=== PATIENT | male | born 1945 | race Caucasian/White ===

== ENCOUNTER 2017-03-18 08:31 | Inpatient (IN) | payer OTHER ==
[~2017-03-18] VITALS: Ht 175.2 cm; Wt 165.6 kg
--- NOTE | ~2017-03-18 | PR ---
[place], [place] PROGRESS NOTE [id number] UN[facility] #: [id number] ROOM: 312 DOCTOR: Shaggy GUILLEN,DONNELL BIRTHDATE: [birth year] DOS: 03/23/2017 PSYCHIATRIC PROGRESS NOTE SUBJECTIVE: The patient seen and spoke with the staff. Per staff, the patient stays in his room most of the time, does not want to come out because he has difficulty getting up. He was angry last night, but he was easily redirectable. He slept well. Medication compliant. No behavioral problems or issues. The patient was in his room. He was on his bed. He was actually sleeping. I woke him up. He reports doing good. Denied any problems with medication. Denied depressed mood or hopelessness. Denied any psychotic or manic symptoms. He was not in any distress. He says that he would like to go home soon. MENTAL STATUS EXAMINATION: The patient was pleasant, cooperative. described his mood as "okay and good." Affect, mood congruent. Thought process goal directed. No flight of ideas or loosening of association. He denied auditory or visual hallucination. No delusion or paranoia noted. He denied suicidal ideation, intent or plan. He also denied homicidal ideation, intent or plan. ASSESSMENT: Major depressive disorder, recurrent without psychotic feature. PLAN: 1. Continue current medications. 2. Continue redirection. 3. Fernando milieu. 4. Final medication management, discharge plan by the regular team. DONNELL GUILLEN MD CM:ORION [id number] Shaggy GUILLEN 03/23/17 1205 interface
--- NOTE | ~2017-03-18 | PR ---
[place], [place] PROGRESS NOTE [id number] #: [id number] ROOM: 312 DOCTOR: Shaggy GUILLEN,DONNELL BIRTHDATE: [birth year] DOS: 03/22/2017 SUBJECTIVE: The patient seen and spoke with the staff. Per staff, the patient wants to go home. Med compliant. No behavior problems or issues. He slept well last night. The patient was pleasant and cooperative. He was in the dining room. Reports doing good. He expressed he has a desire to go home, do not want to go any other places. He said that he has an apartment and he do not want to go anywhere else. He reports being depressed, sad and down at times, but mentions that overall he is doing well and looking forward to go home. He denied any side effect from the medication. MENTAL STATUS EXAMINATION: The patient was pleasant, cooperative. He was alert and oriented to date, month and year. Speech is normal volume and tone. Described his mood as "okay." Affect and mood congruent. Thought process goal directed. No flight of ideas, loosening of association. He denied auditory or visual hallucination. No delusion or paranoia noted. He denied suicidal ideation, intent or plan. He also denied homicidal ideation, intent or plan. ASSESSMENT: Major depressive disorder, recurrent with psychotic feature. PLANS: 1. Continue current medication. 2. Continue redirection. 3. ____. DONNELL GUILLEN MD CM:ORION [id number] Shaggy GUILLEN 03/22/17 215 interface
--- NOTE | ~2017-03-18 | PR ---
[place], [place] PROGRESS NOTE NAME: TAHIRA POSADAS UNIT #: [id number] ROOM: 312 DOCTOR: TONYA GOMEZ MD BIRTHDATE: [birth year] DOS: 03/24/2017 CHIEF COMPLAINT: "You are going to get me an apartment right, do I get to go home soon?" SUMMARY OF THE VISIT: The patient was interviewed as he was wheeled down to the dining area with the aid of the nurse's aides here. He was bright and pleasant and joked with me as he saw me. He is still fixated on being able to leave here and directly go to an apartment. I did attempt to redirect and reeducate him that this may not be the case and that he may have to return to a long-term care facility and it may even be [facility]. He still steadfastly claims to the believe that he can leave here and go directly into an apartment. Nurses report he has been much more compliant and he has not been verbally or physically agitated. MENTAL STATUS: He is alert and oriented with some mild time gaps. Mood does seem to be trending towards euthymia and affect is more appropriate. There are no symptoms suggestive of april or hypomania. There are no overt auditory or visual hallucinations. No delusions or paranoia are present. Short-term memory has some mild gaps, but otherwise he is fully intact. PLAN: I will renew his p.r.n. Ativan in case he requires any p.r.n. intervention, maintain his current dose of Invega as well as the current dose of Cymbalta. Engage in individual and kaur milieu activity with the plan to return to the least restrictive environment when psychiatrically stable. TONYA GOMEZ MD CM:PNTRANS 5 1400 TONYA GOMEZ MD 03/24/17 1359 interface
--- NOTE | ~2017-03-18 | CON ---
[place], [place] REPORT OF CONSULTATION NAME: TAHIRA POSADAS UNIT #: [id number] ROOM: 312 DOCTOR: DERREK HUNTERDALTON BIRTHDATE: [birth year] DOS: 03/21/2017 SUBJECTIVE: This 71-year-old diabetic weight male who is seen today for diabetic foot care of elongated toenails. He states they are uncomfortable with shoes. He states he has had a lot of leg swelling in the past. He was in [facility] where they diuresed him and took, he states 20 pounds fluid off. He denies any problems with his legs today. PAST MEDICAL HISTORY: Positive for diabetes, hypertension, morbid obesity, hyperlipidemia, osteoarthritis, coronary artery disease and congestive heart failure. ALLERGIES: No known drug allergies. CURRENT MEDICATIONS: Include digoxin, spironolactone, lisinopril, Protonix, Glucophage, insulin, Coreg, Bumex, Lipitor, Eliquis, vitamin D, Ativan and Cymbalta. OBJECTIVE: Upon lower extremity physical examination, DP and PT pedal pulses are mildly decreased. Skin temp is warm. There are chronic pigment changes noted bilaterally with about 1+ pitting edema. Negative Homans sign is noted bilaterally. Varicosities and pigment changes noted. No open areas or blisters noted on either leg. Skin is thin and shiny. Sensation appears grossly intact. Contractures of lesser digits are seen with no open areas or callus tissue. Nails 1 through 5 bilaterally are elongated, thick, discolored, brittle with subungual debris present. Again, no ulcerations noted bilaterally. No blisters or macerations. ASSESSMENT: Diabetes, venous insufficiency, vascular disease, onychomycosis 1 through 5 bilaterally and Hammertoe deformity. PLAN: Consult is performed. Manual debridement of mycotic nails 1 through 5 bilaterally in length and thickness to the level of the nail bed to reduce possible hazards such infection. Discussed with the patient about proper diabetic foot care and wearing proper shoe gear. Recommend follow up with the patient in 9 weeks for continued diabetic foot care. Thank you for the opportunity to take part in care of this patient. [place], [place] REPORT OF CONSULTATION NAME: TAHIRA POSADAS UNIT #: [id number] ROOM: [facility] DOCTOR: DALTON ANGLIN DPM BIRTHDATE: [birth year] DALTON ANGLIN DPM CM:CONSTR:REPORT OF CONSULTATION 1129 03/22/17 0110 interface
--- NOTE | ~2017-03-18 | WRIGHTHP ---
[place], [place] PATIENT HISTORY AND PHYSICAL EXAM [id number] #: [id number] ROOM: 312 DOCTOR: TONYA GOMEZ MD BIRTHDATE: [birth year] DOS: 03/19/2017 CHIEF COMPLAINT: "I am not supposed to be here. I am supposed to be at [facility] HISTORY OF PRESENT ILLNESS: This is a 71-year-old white male known to me from his stay at [facility]. The patient was sent here due to an increase in mood lability and agitation. Apparently, the patient has been phoning the police frequently due to perceived wrong doings at the custodial. He has become increasingly paranoid and agitated and has been threatening staff and others. Per his report, he was supposed to go to [facility] because [place]. He was going to help him get into home choice. Prior to his stay at [facility], the patient was living in deplorable conditions, unable to take care of his basic needs and he was evicted from that place of living because of it. He is admitted now to fully rule out organic factors to attempt to stabilize on medication, to engage in individual and kaur milieu activity with the ultimate plan to return to the least restrictive environment when psychiatrically stable. PAST MEDICAL HISTORY: Remarkable for diabetes, hypertension, hyperlipidemia, morbid obesity, osteoarthritis, coronary artery disease, congestive heart failure. Of note, despite these multiple medical complexities, he is medically stable at this point to be on the psychiatric unit. Previous psychiatric history is denied. He states he has not seen a psychiatrist ever, unclear if this is reality. MENTAL STATUS: The patient is alert and oriented to person, place and relatively approximate to time. Mood seems to be fairly euthymic. There is some irritability and agitation noted and some mild paranoia noted. Memory for the most part seems intact. DIAGNOSIS: Major depression, recurrent with psychotic features, rule out cognitive impairment. PLAN: At this point in time, I have started him on Invega 3 mg in the morning. He remains on Cymbalta 60 mg at night, which he was on well at the custodial. We will engage in individual and kaur milieu activity. tax services intern will explore options ranging from assisted living to home choice program where they will gradually transition him into an independent living situation. We will return to one of these situations or back to [facility] when stable. [place], [place] PATIENT HISTORY AND PHYSICAL EXAM NAME: TAHIRA POSADAS UNIT #: [id number] ROOM: [facility] DOCTOR: TONYA GOMEZ MD BIRTHDATE: [birth year] TONYA GOMEZ MD CM:HISPHYS:PATIENT HISTORY AND PHYSICAL EXAMINATION 0911 1015 TONYA GOMEZ MD 03/19/17 1014 interface
--- NOTE | ~2017-03-18 | CON ---
[place], [place] REPORT OF CONSULTATION NAME: TAHIRA POSADAS UNIT #: [id number] ROOM: 312 DOCTOR: CHRISTIE HOGAN ED.D (VANGIE) BIRTHDATE: [birth year] DOS: 03/20/2017 HISTORY OF PRESENT ILLNESS: The patient is a 71-year-old male referred by Dr. Gomez for differential evaluation of psychological evaluation. At the present time, he is on the [facility] Unit at [facility]. This patient states he is single and has never . He has no children. His parents are both and he has no siblings. 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 He has been residing at [facility] near [place], [place]. His family physician is Dr. Bernal and his medical history is pertinent for diabetes mellitus, hypertension, hyperlipidemia, morbid obesity, osteoarthritis, coronary artery disease and congestive heart failure. His medications include digitalis, aspirin, lisinopril, Protonix, metformin, insulin, atorvastatin, Coreg, Bumex, albuterol, Invega, vitamin D, Cymbalta, magnesium hydroxide, and Ativan. He denies any substance abuse issues, whatsoever. This patient was awake, alert and oriented in all three spheres. He denies any suicidal ideation or plan. He did indicate that he was extremely frustrated at the halfway where he had resided for the past 4 months. He became agitated at some of the staff and they eventually sent him to [facility] Unit. He states he was originally scheduled to go to [facility] in [place], [place], but ended up in [place]. He was quite frustrated at the halfway and states he does not want to go there once he is discharged from the hospital. He does believe they had some issues and were prejudiced against him and had some paranoid ideation about behavior he was receiving although I am not certain exactly what was going on. He is clearly not delusional at this time, but does have some mild paranoid thoughts. DIAGNOSIS: Paranoid personality disorder. RECOMMENDATIONS: The patient should continue his medications as prescribed by Dr. Gomez. creative services specialist will need to be involved in discharge planning for this patient. Thank you very much for this consult. CHRISTIE HOGAN ED.D CM:CONSTR:REPORT OF CONSULTATION 1105 03/20/179 interface TONYA GOMEZ MD
--- NOTE | ~2017-03-18 | DS ---
[place], [place] DISCHARGE SUMMARY NAME: TAHIRA POSADAS [facility] #: [id number] UNIT #: [id number] ROOM: 312 DOCTOR: TONYA GOMEZ MD BIRTHDATE: [birth year] DOS: 03/25/2017 CHIEF COMPLAINT: "I am not supposed to be here. I am supposed to be at [facility]." HISTORY OF PRESENT ILLNESS: This is a 71-year-old white male known to me from his stay at [facility] in [place], [place]. The patient is admitted to the [facility] now due to increased mood lability and agitation. The patient has been repeatedly founding the police complaining that people were doing wrong things to him. He has been throwing things at other residents. He has become increasingly physically and verbally combative. He has been noncompliant with all aspects of his care. Prior to his stay at [facility], the patient was living in deplorable conditions and was unable to take care of his basic needs and was evicted from his place of living because of it. He is now admitted to rule out organic factors to attempt to stabilize on medication and to return to the least restrictive environment when stable. PAST MEDICAL HISTORY: Remarkable for diabetes, hypertension, hyperlipidemia, morbid obesity, osteoarthritis, coronary artery disease and congestive heart failure. He denies any previous psychiatric history. SUMMARY OF HOSPITAL COURSE: The patient was admitted to the unit where he was maintained on Cymbalta 60 mg at night for his depressive symptomatology. Because of the paranoid delusions he was having, he was started on Invega 3 mg in the morning with good effect. He had no side effects from the Invega. There was no sedation, somnolence, extrapyramidal symptoms or tardive dyskinesia. With this combination, he rapidly improved to the point where he was able to engage readily in conversation and engage in group activities. He convincingly denied suicidal thoughts, homicidal thoughts or any self-injurious thoughts. He was hoping to be able to be discharged from the hospital into an apartment; however, he is on a waiting list for this and will have to return to [facility] post-discharge. MENTAL STATUS AT DISCHARGE: The patient is alert and oriented with mild gaps. Mood does seem to be euthymic. Affect appropriate. There are no symptoms of hypomania or april. There are no overt auditory or visual hallucinations. No delusions, no paranoia. Short term, intermediate, and long-term memory are relatively intact. FINAL DIAGNOSES: Major depression, recurrent with psychotic features. PLAN: All of his prescriptions have been sent either to institutional Rx or printed. I will follow him upon his return to [facility]. [place], [place] DISCHARGE SUMMARY NAME: TAHIRA POSADAS UNIT #: [id number] ROOM: 312 DOCTOR: TONYA GOMEZ MD BIRTHDATE: [birth year] TONYA GOMEZ MD CM:JEANETTE 7 [phone] TONYA GOMEZ MD 03/25/17 104 interface
--- NOTE | ~2017-03-18 | PR ---
[place], [place] PROGRESS NOTE NAME: TAHIRA POSADAS UNIT #: [id number] ROOM: 312 DOCTOR: TONYA GOMEZ MD BIRTHDATE: [birth year] DOS: 03/21/2017 CHIEF COMPLAINT: "Well, I guess I am going to have to wait a long time to get into my own place. I need just get my own place. I won the lottery. I have 5 million dollars I own the string of [employer] in the [employer]." SUMMARY OF THE VISIT: The patient was interviewed as he was being wheeled down in his wheelchair. He engaged readily in conversation and reported the above to me. He did then wink and nod his head and stated I am just kidding you, none of that is true other than he knows he has to wait to get into a placement. He is not happy about returning to [facility] in hopes that we are able to either assist him in finding an apartment or get him into an alternative placement. He does seem brighter and is reporting improved sleep and appetite. He does seem to be less paranoid and is more engaging in reasonable conversation. He reports no side effects from the medications themselves. MENTAL STATUS: He is alert and oriented with some mild time gaps. Overall, his mood does seem to be trending towards euthymia and affect is much more appropriate. There is no hypomania or april. There are no overt auditory or visual hallucinations noted. For the most part, memory is fully intact. PLAN: I will maintain his current dose of Cymbalta and Invega, engage him in individual and kaur milieu activity, explored placement options discharging when stable. TONYA GOMEZ MD CM:PNTRANS 0953 1259 TONYA GOMEZ MD 03/21/17 1258 interface
[2017-03-18 16:55] VITALS: BP 108/82
[2017-03-18] MEDS ORDERED: ALDACTONE25 M1 PO (18:42)
[2017-03-18] MEDS ORDERED: ASPIRIN325 M2 PO (18:43)
[2017-03-18] MEDS ORDERED: Bactroban Oint22 GM T (18:46)
[2017-03-18] MEDS ORDERED: BUMETANIDE2 MG PO (18:49)
[2017-03-18] MEDS ORDERED: COREG25 MG PO (18:52)
[2017-03-18] MEDS ORDERED: LANOXIN62.5 MCG PO (18:53)
[2017-03-18] MEDS ORDERED: DUONEB 3 MG/3 ML3 M1 INH (18:54)
[2017-03-18 18:56] LABS: BASO % 0.3 % (0.0-1.0); EOS # 0.5 10*3/uL (0.0-0.4); EOS % 4.3 % (1.0-4.0); HEMATOCRIT 30.8 % (42.0-52.0); LYMPH # 1.2 10*3/uL (1.3-4.4); LYMPH % 10.2 % (27.0-41.0); MEAN CELL VOLUME 92.2 fl (80.0-94.0); MEAN CORPUSCULAR HGB 29.9 pg (27.0-31.0); MEAN CORPUSCULAR HGB CONC 32.5 g/dl (33.0-37.0); MEAN PLATELET VOLUME 10.3 fl (9.6-12.3); MONO # 0.6 10*3/uL (0.1-1.0); MONO % 5.3 % (3.0-9.0); NEUT # 9.1 10*3/uL (2.3-7.9); NEUT % 79.2 % (47.0-73.0); PLATELET COUNT AUTOMATED 189 10*3/uL (130-400); RED BLOOD COUNT 3.34 10*6/uL (4.50-5.90); RED CELL DISTRI WIDTH 15.7 % (0-14.5); WHITE BLOOD COUNT 11.5 10*3/uL (4.8-10.8)
[2017-03-18] MEDS ORDERED: ELIQUIS5 M1 PO (18:56)
[2017-03-18] MEDS ORDERED: GLUCOPHAGE500 M1 PO (18:57)
[2017-03-18] MEDS ORDERED: LISINOPRIL5 MG PO (18:58)
[2017-03-18] MEDS ORDERED: LIPITOR40 MG PO (18:58)
[2017-03-18] MEDS ORDERED: MICONAZOLE NIT130 GM T (19:00)
[2017-03-18] MEDS ORDERED: PROAIR RESPICL90 MCG INH (19:02)
[2017-03-18] MEDS ORDERED: PROTONIX40 MG PO (19:03)
[2017-03-18] MEDS ORDERED: TRAMADOL HCL50 MG PO (19:04)
[2017-03-18] MEDS ORDERED: VITAMIN D-32000 UNIT PO (19:05)
[2017-03-18] MEDS ORDERED: CYMBALTA60 MG PO (19:08)
[2017-03-18] MEDS ORDERED: OXYGEN NAS (19:11)
[2017-03-18 19:13] LABS: CREATININE 1.49 mg/dL (0.70-1.30); POTASSIUM 4.7 mmol/L (3.5-5.1); TOTAL PROTEIN 7.8 gm/dL (6.4-8.2)
[2017-03-18 19:25] LABS: DIGOXIN 0.47 ng/ml (0.8-2.0); THYROID STIM HORMONE (HS) 1.41 uIU/ml (0.358-4.75)
[2017-03-18 19:40] VITALS: BP 108/62
--- NOTE | 2017-03-18 19:43 | NUR ---
TAHIRA POSADAS a 71 year old M admitted via stretcher from the ADMITTING as a voluntary admission. Arrived on unit at 1515. ALLERGIES: NKA Vital signs are: 97.6-74-16 108/62. The client signed the following forms with stated understanding: Consent to Voluntary Admission and Hospitalization Admitted under the services of Dr. PATRICIA DE SANTIAGOTONYA. A search was conducted and hazardous articles were removed. Client was oriented to the unit. SANGITA WINTERS
[2017-03-18 20:15] VITALS: BP 110/60
--- NOTE | 2017-03-18 23:00 | NUR ---
PATIENT MEDICATION COMPLIANT. RESTING IN BED AT THIS TIME. URINATING IN URINAL AT BEDSIDE. URINE PRANAV COLOR WITH OUTPUT OF 200ML. NO COMPLAINTS OF DYSURIA. FLUIDS ENCOURAGED.
--- NOTE | 2017-03-19 02:00 | NUR ---
URINE OBTAINED VIA CLEAN CATCH FOR SPECIMEN. URINE PRANAV COLOR WITH STRONG ODOR. URINE OUTPUT OF 150ML. NO COMPLAINTS OF DYSURIA. PATIENT UPSET ABOUT BEING AT [facility] AND STATED HE WAS NOT SUPPOSED TO BE HERE. PATIENT STATED THAT HE HAD TO LEAVE [place] TO GO TO THE BANK AND PAY HIS BILLS AND HE IS CONCERNED ABOUT HIS MEDICARE AND WANDERING HOW EVERYTHING IS GOING TO GET PAID.
[2017-03-19 02:30] LABS: BILIRUBIN NEGATIVE (NEGATIVE); BLOOD NEGATIVE (NEGATIVE); CLARITY CLEAR (CLEAR); COLOR YELLOW (YELLOW); GLUCOSE NEGATIVE (NEGATIVE); KETONE NEGATIVE (NEGATIVE); LEUKO ESTERASE NEGATIVE (NEGATIVE); NITRITE NEGATIVE (NEGATIVE)
[2017-03-19 02:44] LABS: EPITHELIAL CELLS 0-5
--- NOTE | 2017-03-19 04:13 | NUR ---
24 HR chart check completed.
--- NOTE | 2017-03-19 04:44 | NUR ---
PATIENT COMPLAINT OF SOB. PULSE OXIMETRY-90% ROOM AIR. PATIENT REFUSING TO ELEVATE HOB. OXYGEN APPLIED AT 2L VIA NASAL CANNULA WITH PULSE OXIMETRY RESULT OF 96%. PATIENT WITH NO COMPLAINT OF LEFT GREAT TOE PAIN. THIS NURSE ASSESSED PATIENT'S LEFT TOE. LEFT GREAT TOE NAILBED DRY AND HEALING. OPEN TO AIR AT THIS TIME.
[2017-03-19 10:27] VITALS: BP 108/62
--- NOTE | 2017-03-19 12:54 | NUR ---
Exercise/Positivity Patient was in room for group but was yelling out and being demanding. Asked x3 to please to stop being inappropriate and that he may enjoy group. Patient continued to be uncooperative so patient was removed from the room
--- NOTE | 2017-03-19 15:36 | NUR ---
VANIA This patient was asleep in his chair when group started. Attempted to encourage patient to join in group but patient was just rude and inappropriate, yelled "No! I want to go to my room now!" Attempted to explain reason for delay in taking him but patient again yelled "I want to go to my room."
--- NOTE | 2017-03-19 16:27 | NUR ---
Occupational Therapy evaluation completed on SB with full eval to follow. Precautions include low complexity level 69322, fall risk, obesity, new ww use, impaired insight. Recommend OT per POC and SNF upon d/c to determine ability to live at home. Thank you for this referral. Aleksandra Shields OTR/l
--- NOTE | 2017-03-19 17:27 | NUR ---
PHYSICAL THERAPY EVALUATION COMPLETED. PATIENT IN HIS ROOM IN WHEELCHAIR. PATIENT COOPERTIVE WITH THIS EVALUATION. PATIENT REPEATEDLY REPORTS HE DOES NOT KNOW WHY HE IS ON THEY PHYSH FLOOR OF THE HOSPITLAL, DOES NOT KNOW WHY HE IS IN [place] WHEN HE SHOULD BE AT [facility] CLOSER TO WHERE HE LIVES AND STATES HE IS ANGRY THAT HE IS IN "THIS PLACE." DESPITE PATIENTS VERBAL RANT, HE DID PARTICIPATE. SIT TO STAND FROM WHEELCHAIR WITH DEFINITE B UE PUSH TO STAND, UNABLE TO STAND WITHOUT ARMRESTS. FRONT WHEELED WALKER UPON STANDING. GAIT X 20FT WITH SBA FOR SAFETY. PATIENT PRESENTED WITH UNCONTROLLED DESCENT FROM STAND TO SIT WITH SIGNIFICANT "PLOPPING" TO THE CHAIR D/T FATIGUE WALKING 20 FT WITH WALKER. PATIENT WHEELED TO NURSED STATION TO USE THE PHONE AFTER COMPLETION OF THIS EVALUATION. PT EVALUATION: MODERATE COMPLEXITY WITH INCREASED TIME REQUIRED DURING EVALUTION FOR REDIRECTION OF PATIENT'S ATTENTION ON TASK AT HAND; LOW ACTIVITY TOLERANCE; CGA REQUIRED DURING GAIT FOR SAFETY; EDUCATION REQUIRED FOR SAFETY WITH GAIT AND TRANSFERS. THANK YOU FOR THIS REFERRAL, AKSHAT MORENO, PT
--- NOTE | 2017-03-19 19:51 | NUR ---
Refer to [facility] flowsheet for specific monitoring on this day.
[2017-03-19 20:45] VITALS: BP 140/79
--- NOTE | 2017-03-20 03:03 | NUR ---
24 HOUR CHART CHECK COMPLETED.
--- NOTE | 2017-03-20 05:41 | NUR ---
PATIENT OBSERVED ON Q 15 MIN SAFETY CHECKS TO HAVE SLEPT >7 HOURS INTERRUPTED WITH X3 BRIEF AWAKENINGS TO USE THE RESTROOM WITH ASSISTANCE OF STAFF. OXYGEN APPLIED AT 3L NC REQUESTED WHILE LYING DOWN IN BED WITH A PULSE OX RESULT OF 98%, RESPIRATIONS EASY AND REGULAR. WITH NO RESPIRATORY DISTRESS NOTED THIS SHIFT. NO HALLUCINATIONS OR DELUSIONS OBSERVED. MEDICATION COMPLIANT WITH OUT DIFFICULTY AFTER REVIEW OF MEDICINES. NO PHYSICAL COMPLAINTS VOICED. NO SIGNS OR SYMPTOMS OF DISTRESS NOTED. REFER TO [facility] FLOWSHEET FOR SPECIFIC MONITORING.
[2017-03-20 07:44] LABS: BASO % 0.3 % (0.0-1.0); EOS # 0.5 10*3/uL (0.0-0.4); EOS % 5.2 % (1.0-4.0); HEMATOCRIT 34.8 % (42.0-52.0); LYMPH # 1.2 10*3/uL (1.3-4.4); LYMPH % 12.5 % (27.0-41.0); MEAN CELL VOLUME 90.6 fl (80.0-94.0); MEAN CORPUSCULAR HGB 28.6 pg (27.0-31.0); MEAN CORPUSCULAR HGB CONC 31.6 g/dl (33.0-37.0); MEAN PLATELET VOLUME 10.4 fl (9.6-12.3); MONO # 0.7 10*3/uL (0.1-1.0); MONO % 7.3 % (3.0-9.0); NEUT # 7.3 10*3/uL (2.3-7.9); PLATELET COUNT AUTOMATED 181 10*3/uL (130-400); RED BLOOD COUNT 3.84 10*6/uL (4.50-5.90); RED CELL DISTRI WIDTH 15.4 % (0-14.5); WHITE BLOOD COUNT 9.8 10*3/uL (4.8-10.8)
[2017-03-20 07:57] LABS: BUN 23 mg/dl (7-24); CHLORIDE 93 mmol/L (98-107); CREATININE 0.95 mg/dL (0.70-1.30); POTASSIUM 4.3 mmol/L (3.5-5.1); SODIUM 133 mmol/L (136-145)
[2017-03-20 08:05] VITALS: BP 102/58
[2017-03-20 08:08] LABS: DIGOXIN 0.41 ng/ml (0.8-2.0)
--- NOTE | 2017-03-20 10:25 | NUR ---
PHYSICAL THERAPY Justin seen this AM and was sleeping sound on this therapy visit, will stop back later. ROCHELLE YEH POST ANESTHESIA ROOM NURSE.
--- NOTE | 2017-03-20 10:26 | NUR ---
PHYSICAL THERAPY Came back 1 1/2 hour later and Justin was up in his wheelchair out in the jonas by the nurses station. Nurse present and passing meds. Said that Mr Jose BP was low and she was going to call his DR and let his know. Pt's therapy hold temitope now due to low BP. ROCHELLE YEH DRAWING OPERATOR.
--- NOTE | 2017-03-20 13:06 | NUR ---
Exercise/Choices/Trivia Patient did not attend group. Attempted to encourage patient but patient is rude and states "I don't want to go in there wth those crazies." When attempting to explain that saying that was inappropriate patient interupted and stated "I don't care."
--- NOTE | 2017-03-20 14:14 | NUR ---
PATIENT IS ALERT AND ORIENT TO PERSON, PLACE AND TIME; ABLE TO VOICE NEEDS. MOOD IS IRRITABLE/ANGRY AT TIMES. DENIES ANY HALLUCINATIONS, DELUSIONS, SI/HI OR PAIN. PATIENT IS ORGANIZED, GOAL DIRECTED TO GO HOME. TALKS WITH STAFF AND OTHER PATIENTS, REFUSES TO PARTICIPATE IN GROUPS. 1-2 PERSON ASSIST WITH ACTIVITIES OF DAILY LIVING. APPETITE IS GOOD WITH ADEQUATE FLUIDS. CONTINENT OF BOWEL AND BLADDER, WITH EPOSIDES OF BLADDER INCONTINENCE. MEDICATION COMPLIANT WITH UNDERSTANDING OF MEDICATIONS. Q 15 MINUTE SAFETY CHECKS MAINTAINED.
--- NOTE | 2017-03-20 15:17 | NUR ---
DR VILLANUEVA NOTIFIED OF GARMENT FORM ASSEMBLER CONSULT.
--- NOTE | 2017-03-20 16:49 | NUR ---
Sent updated info. to facility
[2017-03-20 20:22] VITALS: BP 110/60
--- NOTE | 2017-03-20 21:32 | NUR ---
BP 110/70 MANUAL, HELD COREG AND NOTIFIED DR. PACHECO OF BP.
--- NOTE | 2017-03-20 22:40 | NUR ---
PATIENT LAYING IN BED. OXYGEN AT 3L VIA NASAL CANNULA APPLIED. VOICES NO COMPLAINTS OF PAIN OR DISCOMFORT AT THIS TIME.
--- NOTE | 2017-03-21 05:41 | NUR ---
24 HR chart check completed.
--- NOTE | 2017-03-21 06:43 | NUR ---
PT DENIES PAIN UPON URINATION OR BELLY PAIN. SMALL CLOT AND BLOOD TINGED URINE NOTED IN UNINAL. WHEN QUESTIONED PT STATED "I HAD A NOSE BLEED WHEN I PEED". N OBLOOD NOTED IN NARES OR IN ANY OTHER AREA SURROUNDING PT OR BATHROOM. CALL PLACED TO DR. PACHECO NOTIFIED OF FINDINGS, RECENT LABS AND NO KNOWN TRAUMA DUE TO CATHING. ORDERS RECIEVED TO REPEAT UA
--- NOTE | 2017-03-21 06:46 | NUR ---
PT MEDICATION COMPLIANT WITH OUT DIFFICULTY. UNDERLYING CAUSE OF IRRITABILITY DISCUSSED WITH PT DURING 1-1. PT REPORTS FRUSTRATION WITH CHANGE AND RULES OF UNIT, STATING HE HAS MONEY MATTERS THAT HE HAS TO ATTEND TO. PT INFORMED THAT HE CANNOT CONDUCT LEGAL BUSINESS ON A PSYCH UNIT FOR HIS PROTECTION AND THAT A MESSAGE WOULD BE PASSED ON TO RACING CAR DRIVER TO ADDRESS CONCERS. PT SLEPT THROUGHOUT THE NIGHT WITH ONLY INTURRUPTIONS TO URINATE. PT REPORTS DECREASE IN AGITAION BUT LOOKING FORWARD TO GOING HOME. DR. PACHECO ON UNIT TO ASSESS PT. NEW ORDERS TO BE ENTERED.
--- NOTE | 2017-03-21 07:35 | NUR ---
03/20/17 Afternoon VANIA I approched patient very nicely to encourage patient to join in group but patient yelled "NO!" before i could complete a sentence. I attempted again asking patient to please let me finish my question. Again patient yelled "NO!" before i finished that sentence. Patient did not attend group
[2017-03-21 08:00] VITALS: BP 107/62
--- NOTE | 2017-03-21 09:15 | NUR ---
PT OFF UNIT WITH ESCORT AND SECURITY AT THIS TIME FOR RENAL ULTRASOUND.
--- NOTE | 2017-03-21 09:35 | NUR ---
PT RETURNED FROM ULTRASOUND WITHOUT INCIDENT.
--- NOTE | 2017-03-21 10:06 | NUR ---
URINALYSIS OBTAINED VIA CLEAN CATCH, LABELED AND SENT TO LAB AT THIS TIME.
[2017-03-21 10:34] LABS: BILIRUBIN NEGATIVE (NEGATIVE); BLOOD TRACE-INTACT (NEGATIVE); CLARITY CLEAR (CLEAR); COLOR YELLOW (YELLOW); GLUCOSE NEGATIVE (NEGATIVE); KETONE NEGATIVE (NEGATIVE); LEUKO ESTERASE NEGATIVE (NEGATIVE); NITRITE NEGATIVE (NEGATIVE); UROBILINOGEN 0.2 E.U./dl (0.2-1.0)
--- NOTE | 2017-03-21 11:07 | NUR ---
PATIENT REPORTS JUST GOT BACK INTO BED TO REST AND DECLINES THERAPY THIS AM. WILL TRY BACK LATER DATE. MEGHAN DREW/Annemarie
--- NOTE | 2017-03-21 11:59 | NUR ---
PHYSICAL THERAPY Justin seen this AM X 2. First Pt supine in bed and not getting up for his therapy. Came back 2 1/2 hours later and Justin said that he just got back in bed and was going to stay there, that i would need to seen his another time. ROCHELLE YEH FIBERGLASS TECHNICIAN.
--- NOTE | 2017-03-21 12:08 | NUR ---
RYAO ARIZA SOFTWARE PROJECT ENGINEER ON UNIT, MADE AWARE OF URINALYSIS RESULTS, MADE AWARE PT REPORTS FREQUENTLY BLOODY NOSE AND IS ON ELIQUIS AND ASPRIIN. SOFTWARE PROJECT ENGINEER REVIEWED MEDICATIONS AND LAB RESULTS, STATES OK TO GIVE ELIQUIS AND ASPIRIN ORDERED.
--- NOTE | 2017-03-21 15:03 | NUR ---
PT IS ALERT AND ORIENTED TO PERSON, PLACE, TIME. SOME ST MEMORY GAPS NOTED AT TIMES. RESPIRATIONS EASY ON ROOM AIR, PT UTILIZES O2 WHEN LAYING DOWN. MOOD IS ANGRY/IRRITABLE, AFFECT IS FLAT, SPEECH IS WNL AND COHERENT, ABLE TO MAKE NEEDS KNOWN WITHOUT DIFFICULTY. PT DEMANDING AT TIMES, CONDESENDING TO STAFF. PT DENIES SI/HI. PT DENIES HALLUCINATIONS, NO RESPONSE TO INTERNAL STIMULI NOTED. MEDICATION COMPLIANT WITHOUT DIFFICULTY. AM DOSES OF COREG AND LISINOPRIL HELD D/T BP 107/62 - RAYO ARIZA CNP AWARE. URINALYSIS OBTAINED, RESULTS REVIEWED BY SHORTY PAUL. RENAL ULTRASOUND COMPLETED THIS SHIFT. PT WAS ALSO SEEN THIS DATE BY LEAN SENSEI DR. ANGLIN, TOENAILS CLIPPED. PT USES WHEELCHAIR ON THE UNIT, CAN TRANSFER WITH STANDBY ASSIST OF STAFF FOR SAFETY. CONTINENT OF BOWEL AND BLADDER. BM TODAY. SMALL AMOUNT BRIGHT RED BLOOD NOTED AFTER WIPING, PT ALSO REPORTS FREQUENT NOSE BLEED AND STATES THE BLOOD CLOT FOUND IN URINAL WAS FROM THIS NOSE LAST NIGHT. SHORTY PAUL AWARE. LABS ORDERED FOR TOMORROW AM. PT WAS GIVEN PRN TYLENOL 650MG PO AT 1435 FOR C/O BACK PAIN, WILL MONITOR FOR EFFECTIVENSS. NO DISTRESS NOTED. Q15 MIN SAFETY CHECKS MAINTAINED, REFER TO [facility] [place] FLOWSHEET FOR SPECIFIC MONITORING.
[2017-03-21 19:54] VITALS: BP 116/72
--- NOTE | 2017-03-21 22:31 | NUR ---
PT VOICING C/O BACK PAIN LEVEL OF 10. PRN TYLENOL 650 MG PO ADMINISTERED.
--- NOTE | 2017-03-21 23:00 | NUR ---
PT RESTING QUIETLY IN BED PRN TYLENOL EFFECTIVE.
--- NOTE | 2017-03-22 05:56 | NUR ---
PT SLEEPING AT BEGINING OF SHIFT AWOKEN AND OFFERED HS SNACK AND SOCIALIZATION. PT IRRITABLE AND UPSET THAT HE CANNOT HAVE MEALS IN HIS ROOM. 1-1 PROVIDED AND ENCOURAGED SOCIALIZATION WITH PEERS, REINFORCED COPING SKILLS. PT SLEPT MOST OF SHIFT AWOKE 3 TIMES FOR URINATION IN URINAL AT BEDSIDE. CONTINUES WITH IRRITABLE MOOD AND RESISTANT TO INTERVENTIONS PROVIDED BY NURSING STAFF. CONTINUE TO ENCOURAGE SOCALIZATION AND DECREASE ISOLATION. MED COMPLIANT WITH OUT DIFFICULTY. VOICING OF COMPLAINTS OF BACK PAIN RATE OF 10 OFFERED REPOSITIOING AND AMBULATION WITH STAFF AND WALKER PT REFUSED STATING "I HURT BECAUSE I HAVE TO BE UP IN THE CHAIR ALL DAY AND NOT ALLOWED TO LAY IN BED LIKE I WANT TO" PT GIVEN PRN TYLENOL PO WITH EARLY AM MED PASS.
[2017-03-22 08:34] VITALS: BP 114/57
--- NOTE | 2017-03-22 15:15 | NUR ---
Mood is depressed with some irritability noted. On 1:1 interaction he has been noted to make sarcastic comments @ times. He denies any thoughts of self harm and spent much of the conversation voicing c/o the care that he has received @ this facility as well as others. @ one point during times of irritability, he threatened to defecate on the floor. Expressed c/o back pain which he rates as a "10" and was medicated with tylenol two tabs po (325 mg each) @ 10:21. States partial relief obtained. Requires verbal prompting to motivate self to complete simple tasks and is noted to request for staff to assist him with tasks that he can complete himself. No interacting noted with peers. Denies experiencing any sensory disturbances. He did express some paranoid statements regarding the previous facility where he was residing. Energy level is low and appetite is good. Refer to [facility] flowsheet for specific monitoring and also refer to process intervention screen for glucometer results of today. Dr. Schultz in to see him today.
--- NOTE | 2017-03-22 18:55 | NUR ---
MEDICATED WITH MAALOX 30 ML @ THIS TIME FOR STOMACH UPSET.
[2017-03-22 21:00] VITALS: BP 124/60
--- NOTE | 2017-03-22 21:07 | NUR ---
C/O SHORTNESS OF BREATH. RESP THERAPY NOTIFIED FOR BREATHING TREATMENT.O2 ON 4L NC. NO WHEEZING NOTED. PULSE OX 95%
--- NOTE | 2017-03-22 21:31 | NUR ---
STATES FEELS MUCH BETTER SINCE GETTING RESPIRATORY TREATMENT. MEDICATION COMPLIANT. ENCOURAGED CLIENT TO SLEEP IN A SEMI-FOWLERS POSTION TO ASSIST BREATHING. AGREES TO TRY.
--- NOTE | 2017-03-23 02:33 | NUR ---
po fluids provided to client. client refuses to get out of bed to get drinks. drinks on bedside within reach.
--- NOTE | 2017-03-23 05:43 | NUR ---
SLEPT INTERMITTENTLY. DRANK MODERATE AMOUNT OF FLUIDS. O2 4LNC ON. MOVES SELF IN BED. 24 HR chart check completed.
[2017-03-23 06:39] LABS: BASO % 0.2 % (0.0-1.0); EOS # 0.5 10*3/uL (0.0-0.4); EOS % 3.4 % (1.0-4.0); HEMATOCRIT 32.3 % (42.0-52.0); HEMOGLOBIN 10.2 g/dl (14.0-18.0); LYMPH # 1.5 10*3/uL (1.3-4.4); LYMPH % 10.9 % (27.0-41.0); MEAN CELL VOLUME 90.5 fl (80.0-94.0); MEAN CORPUSCULAR HGB 28.6 pg (27.0-31.0); MEAN CORPUSCULAR HGB CONC 31.6 g/dl (33.0-37.0); MEAN PLATELET VOLUME 10.5 fl (9.6-12.3); MONO % 7.1 % (3.0-9.0); NEUT # 10.4 10*3/uL (2.3-7.9); NEUT % 77.7 % (47.0-73.0); PLATELET COUNT AUTOMATED 170 10*3/uL (130-400); RED BLOOD COUNT 3.57 10*6/uL (4.50-5.90); RED CELL DISTRI WIDTH 15.2 % (0-14.5); WHITE BLOOD COUNT 13.4 10*3/uL (4.8-10.8)
--- NOTE | 2017-03-23 06:51 | NUR ---
ROOM REEKS OF STRONG URINE. CLIENT REFUSED SHOWER BEFORE BREAKFAST BUT AGREED TO GET ONE AFTER. STATES HE FEELS GREAT TODAY. NO STOMACH PAINS LIKE YESTERDAY. DISCUSSED HIS DIABETIC AND CARDIAC DIET.
[2017-03-23 07:19] LABS: ALBUMIN 2.9 gm/dl (3.1-4.5); ALKALINE PHOSPHATASE 110 U/L (45-117); BUN 40 mg/dl (7-24); CHLORIDE 90 mmol/L (98-107); CREATININE 1.33 mg/dL (0.70-1.30); POTASSIUM 4.1 mmol/L (3.5-5.1); SGOT/AST 12 IU/L (3-35); SGPT/ALT 28 U/L (12-78); SODIUM 132 mmol/L (136-145); TOTAL PROTEIN 7.9 gm/dL (6.4-8.2)
[2017-03-23 08:23] VITALS: BP 101/75
--- NOTE | 2017-03-23 14:17 | NUR ---
Mood is depressed with energy level low. On 1:1 interaction with staff Justin is limited. He denies any thought of suicide and reports that he is "not sure why they sent me here." Ventilated feelings related to the frustration of not getting assistance that he needs with housing issues. Requires encouragement to complete tasks himself. He did shower with stand by assistance of two milieu. Milieu reports that he was able to shower himself. Justin isolates to his room in between meals and offers no verbalization to others. Appetite is good. Dr. Schultz in to see him this morning. CBC and CMP testing completed. Notified Dr. Dang of need to review abnormal labs of today. Justin did voice c/o back discomfort and was medicated with tylenol two tabs po @ 10 am. He rates his discomfort as a "10" and states only partial relief obtained with tylenol. Utilizes O2 @ 4 l/min via nasal cannula intermittently. Refer to [facility] flowsheet for specific monitoring.
[2017-03-23 19:48] VITALS: BP 112/74
--- NOTE | 2017-03-23 22:38 | NUR ---
PT REQUESTED PRN TYLENOL 2 TABS FOR C/O GENERALIZED DISCOMFORT @ 2020. RATED PAIN 10/10. TYLNEOL WAS EFFECTIVE PT WAS NOTE TO BE SLEEPING @ 2099. HS BEDSIDE GLUCOSE WAS 219.
--- NOTE | 2017-03-23 22:54 | NUR ---
24 HR chart check completed.
--- NOTE | 2017-03-24 05:34 | NUR ---
PT HAS SLEPT QUIETLY THROUGHOUT THE SHIFT PAST 2099. IV CONTINUES TO RUN AT THIS TIME.
--- NOTE | 2017-03-24 05:56 | NUR ---
PT REQUESTED & WAS MEDICATED WITH 2 TYLENOL AT THIS TIME FOR C/O GENERALIZED BACK PAIN. RATED PAIN 9/10.
--- NOTE | 2017-03-24 06:30 | NUR ---
AM BEDSIDE GLUCOSE 143
[2017-03-24 06:40] LABS: BASO % 0.3 % (0.0-1.0); EOS # 0.5 10*3/uL (0.0-0.4); EOS % 5.1 % (1.0-4.0); HEMOGLOBIN 9.6 g/dl (14.0-18.0); LYMPH # 1.3 10*3/uL (1.3-4.4); LYMPH % 12.7 % (27.0-41.0); MEAN CELL VOLUME 91.2 fl (80.0-94.0); MEAN CORPUSCULAR HGB 29.2 pg (27.0-31.0); MEAN PLATELET VOLUME 10.4 fl (9.6-12.3); MONO # 0.8 10*3/uL (0.1-1.0); MONO % 7.8 % (3.0-9.0); NEUT # 7.4 10*3/uL (2.3-7.9); NEUT % 73.5 % (47.0-73.0); PLATELET COUNT AUTOMATED 159 10*3/uL (130-400); RED BLOOD COUNT 3.29 10*6/uL (4.50-5.90); RED CELL DISTRI WIDTH 15.3 % (0-14.5); WHITE BLOOD COUNT 10.1 10*3/uL (4.8-10.8)
[2017-03-24 07:15] LABS: ALBUMIN 2.7 gm/dl (3.1-4.5); CREATININE 1.68 mg/dL (0.70-1.30); POTASSIUM 4.7 mmol/L (3.5-5.1); TOTAL PROTEIN 7.4 gm/dL (6.4-8.2)
[2017-03-24 08:09] VITALS: BP 110/80
--- NOTE | 2017-03-24 11:32 | NUR ---
Exercise/Memory Ball Patient did not attend group. Patient was encouraged to join and refused. I attempted to explain the benefits to himself if he came but patient yelled "No!" befor i could finish my sentence
--- NOTE | 2017-03-24 11:35 | NUR ---
bag of fluid done. pt is heplocked
--- NOTE | 2017-03-24 11:42 | NUR ---
PHYSICAL THERAPY Justin seen X 2 for his physical therapy session. Both times Justin said that he was having back pain and bilateral knee pain and did not want any therapy today did not want up. ROCHELLE YEH BUCKSHOT SWAGE OPERATOR.
--- NOTE | 2017-03-24 11:50 | NUR ---
PATIENT SEEN 1:1 THIS DATE 25 MINUTES.PATIENT IDENTIFIED BY NAME AND DATE OF . PATIENT SEEN IN ROOM THIS DATE. PATIENT COMPLETED SIT TO STAND GERICHAIR CGA WITH MIN INSTRUCTION PROPER HAND PLACEMENT/ SAFETY. PATIENT COMPLETED GROOMING SEATED EOB BRUSHING TEETH SAHA EOB. PATIENT COMPLETED LB DRESSING TASK MOD A TO GENNY DEPENDS AND MIN A GENNY SHORTS SEATD EOB WITH MIN VERBAL CUES SAFETY. COMPLETED STAND TOLERANCE APPROX 20 SECONDS THIS DATE X 2 USE FWW SUPPORT STATIC BALANCE CGA. PATIENT C/O PAIN IN BACK WITH STANDING WITH NURSING NOTIFIED. COMPLETED SIT TO SUPINE SBA WITH USE RAIL. MEGHAN DREW/Annemarie
[2017-03-24 20:05] VITALS: BP 110/62
--- NOTE | 2017-03-24 21:17 | NUR ---
HS BEDSIDE GLUCOSE 244
--- NOTE | 2017-03-24 21:29 | NUR ---
REQUESTED & MEDICATED WITH MAALOX 30 CC PO @ 2102 FOR C/O UPSET STOMACH.
--- NOTE | 2017-03-25 00:25 | NUR ---
24 HR chart check completed.
--- NOTE | 2017-03-25 05:53 | NUR ---
PT STATED RELIEF WITH MAALOX. REMAINED LAYING IN BED SINCE 2099 BUT WAS NOT NOTED TO BE SLEEPING UNTIL 99. PT HAS BEEN INCONTINENT OF URINE X 2.
--- NOTE | 2017-03-25 06:54 | NUR ---
AM BEDSIDE DGLUCOSE 127.
[2017-03-25 07:46] LABS: CHLORIDE 96 mmol/L (98-107); CREATININE 0.98 mg/dL (0.70-1.30); POTASSIUM 4.8 mmol/L (3.5-5.1); SODIUM 135 mmol/L (136-145)
[2017-03-25 07:58] LABS: BUN 33 mg/dl (7-24)
--- NOTE | 2017-03-25 08:01 | NUR ---
03[facility]17 [facility]. Patient was in room asleep. Patient was woke to encourage to come, but patient refused x2
[2017-03-25 08:15] VITALS: BP 134/76
--- NOTE | 2017-03-25 08:17 | NUR ---
PHYSICAL THERAPY Justin up in his room in a wheelchair and talked into his therapy gait. Transfer sit/stand MOD A X 1, standing balance with wheeled walkwer MIN A X 1. Followed by gait 27' X 1, W/W and MOD RACING SECRETARY AND HANDICAPPER X 1, verbal cueing for gait, walker, balance safety and Justin said thats all. Pt wheeled down to the day room for his breakfast at this time, treatment time 16 min. ROCHELLE YEH ASSOCIATE PROFESSOR OF ECONOMICS.
--- NOTE | 2017-03-25 08:22 | NUR ---
RAYO ARIZA CNP NOTIFIED OF PATIENT'S DISCHARGE.
[2017-03-25] MEDS ORDERED: PALIPERIDONE ER3 MG PO (08:52)
[2017-03-25] MEDS ORDERED: LORAZEPAM0.5 MG PO (08:52)
[2017-03-25] MEDS ORDERED: DULOXETINE HCL60 MG PO (08:52)
--- NOTE | 2017-03-25 09:19 | NUR ---
d/c back to [facility] today. pt. frustrated that he can't get his own apt. right now but on a waiting list for [facility]. pt. d/c'ed via [facility]. facility notified.
--- NOTE | 2017-03-25 11:16 | NUR ---
NURSE TO NURSE GIVEN TO MARIKA AT [facility]. ALL QUESTIONS ANSWERED. REVIEWED DISCHARGE INSTRUCTIONS TO PATIENT; ALERT AND ORIENT TO PERSON, PLACE AND TIME; OWN PERSON. ALL PAPER WORK SIGNED AND PATIENT AWAITING AMBULANCE SERVICE FOR DISCHARGE.
--- NOTE | 2017-03-25 11:43 | NUR ---
Exercise/Games Patient wouldnt even let me get the question out of my mouth when he yelled "NO!" Attempted again and same thing happened patient yell "NO!." So patient refused x2
--- NOTE | 2017-03-25 12:15 | NUR ---
PT DISCHARGED VIA [facility] TO [facility].
--- NOTE | 2017-03-26 08:11 | NUR ---
PHYSICAL THERAPY CO-SIGN I approve of the Phyical Therapy notes written above. PERRI SIMMS PT
--- NOTE | 2017-03-26 08:11 | NUR ---
OCCUPATIONAL THERAPY CO-SIGN I approve of the Occupational Therapy notes written above. VIOLETTA VAZQUEZ OTR/Annemarie
== END 2017-03-25 12:15 | disposition other institution (70) | DRG 885 ==
LOC: 3N 08:31
PROVIDERS: Internal Medicine; Registered Nurse; Student in an Organized Health Care Education/Training Program; ADMIT Psychiatry & Neurology Psychiatry
PROC: 0HBRXZZ Excision of Toe Nail, External Approach (ICD-10-PCS; principal; 2017-03-21)
DX: F33.3 Major depressive disorder, recurrent, severe with psychotic symptoms (principal); N17.9 Acute kidney failure, unspecified; E46 Unspecified protein-calorie malnutrition; I11.0 Hypertensive heart disease with heart failure; I50.9 Heart failure, unspecified; E87.1 Hypo-osmolality and hyponatremia; Z68.43 Body mass index [BMI] 50.0-59.9, adult; F23 Brief psychotic disorder; F60.0 Paranoid personality disorder; E11.65 Type 2 diabetes mellitus with hyperglycemia; E66.01 Morbid (severe) obesity due to excess calories; E78.5 Hyperlipidemia, unspecified; M19.90 Unspecified osteoarthritis, unspecified site; I25.10 Atherosclerotic heart disease of native coronary artery without angina pectoris; Z79.84 Long term (current) use of oral hypoglycemic drugs

== ENCOUNTER 2017-06-25 18:36 | Inpatient (IN) | payer OTHER ==
[~2017-06-25] VITALS: Ht 177.8 cm; Wt 158.8 kg
--- NOTE | ~2017-06-25 | PR ---
[place], [place] PROGRESS NOTE NAME: TAHIRA POSADAS [facility] #: [id number] UNIT #: [id number] ROOM: 312 DOCTOR: Shaggy GUILLEN,DONNELL BIRTHDATE: [birth year] DOS: 06/28/2017 PSYCHIATRIC PROGRESS NOTE SUBJECTIVE: The patient seen and spoke with the staff. Per staff, the patient is still delusional and paranoid, med compliant; no behavioral problems or issues. The patient was pleasant, cooperative. She was in her bed. She said that she is doing better and feeling better. When I asked her about the sleep, she said that her sleep is "so-so." She seems to be a little bit guarded and did not elaborate any of her paranoia, but mentioned that she feels paranoid at times. She denied any side effect from the medication. MENTAL STATUS EXAMINATION: Pleasant, cooperative, described her mood as "okay." Affect, mood congruent. She denied auditory or visual hallucination. She seems to be guarded and paranoid. She denied suicidal ideation, intent or plan. She also denied homicidal ideation, intent or plan. ASSESSMENT: Schizoaffective disorder, still psychotic and paranoid. PLAN: 1. Continue current medications and care. 2. Continue redirection. 3. Encourage activity and groups. 4. Final medication management and discharge plan by the regular team. DONNELL GUILLEN MD CM:ORION [id number] Shaggy GUILLEN 06/29/17 0253 interface
--- NOTE | ~2017-06-25 | WRIGHTHP ---
[place], [place] PATIENT HISTORY AND PHYSICAL EXAM [id number] #: [id number] ROOM: 312 DOCTOR: TONYA GOMEZ MD BIRTHDATE: [birth year] DOS: 06/25/2017 CHIEF COMPLAINT: "That woman over there is trying to get me charged with things and trying to send me to usp." HISTORY OF PRESENT ILLNESS: This is a 72-year-old white male known to me from a previous admission here to the [facility] as well as his stay at [facility] at [facility] and [facility]. The patient had been increasingly more bizarre and agitated while at the skilled nursing. The patient was throwing his urine at other residents and staff in hopes to infect them. The patient was also very grandiose and stated he just returned from a visit to the [place] where he got to see the President. He also is very paranoid and believes that people are attempting to have him sent to usp for being loud. The patient was verbalizing that he was seeing chipmunks and squirrels in his room when in reality, nothing was there. Because his behavior was so problematic and he was putting himself and others at risk, he was sent to [facility] to be evaluated where he was ultimately sent here on an involuntary basis for further evaluation and treatment. The patient has a previous admission here due to similar behavior. PAST MEDICAL HISTORY: Remarkable for coronary artery disease, atrial fibrillation, chronic venous stasis dermatitis, COPD, diabetes, hypertension, GERD, hyperlipidemia, morbid obesity, and vitamin D deficiency. MENTAL STATUS: The patient is alert and oriented. Mood does seem to be rather angry and his responses to me were rather terse and short. He was very upset with staff at the skilled nursing and there seemed to be a level of paranoia and delusions present. He did report to me that he did return from a visit to see president Magdy and was also upset that the police were charging him with a variety of offenses including being loud. He was unhappy with his current stay at the skilled nursing and voices a great displeasure. In addition to the marked delusional system and agitation, the patient does endorse visual and auditory hallucinations. Memory has gaps especially for short term events. DIAGNOSIS: Schizoaffective disorder. PLAN: The patient will be started on Invega 6 mg in the morning and his Risperdal will be discontinued. Because he does have a history of being episodically noncompliant with medication, if he tolerates the oral Invega well, I will plan to load with Invega Sustenna eliminating some of the compliance issues. I will discontinue the Cymbalta in case it is triggering any potential april or manic episodes. We will support and monitor, engage in individual and kaur milieu activity with the ultimate plan to return back to [facility] at [facility] or an alternative facility if need be. [place], [place] PATIENT HISTORY AND PHYSICAL EXAM NAME: TAHIRA POSADAS UNIT #: [id number] ROOM: [facility] DOCTOR: TONYA GOMEZ MD BIRTHDATE: [birth year] TONYA GOMEZ MD CM:HISPHYS:PATIENT HISTORY AND PHYSICAL EXAMINATION 1013 TONYA GOMEZ MD 06/26/17 1012 interface
--- NOTE | ~2017-06-25 | PR ---
[place], [place] PROGRESS NOTE NAME: TAHIRA POSADAS UNIT #: [id number] ROOM: 312 DOCTOR: TONYA GOMEZ MD BIRTHDATE: [birth year] DOS: 06/30/2017 CHIEF COMPLAINT: The patient refused to speak to me. SUMMARY OF THE VISIT: The patient was resting in his bed. I entered his room and repeatedly called his name. I did see him open his eyes briefly to look at me, but he did not respond to me. This is very similar to the type of behavior that the nurses have been noting, for example at one point, they found him on the floor and he stated he had fallen; however, his roommate who is alert and oriented x 3, was in the room during the entire process and stated that he witnessed the patient deliberately put a pillow on the floor and gradually lowered himself to the ground. The patient continues to also be resistive to ADL maintenance and is very much negative about receiving care. MENTAL STATUS: My mental status is limited by his lack of participation. PLAN: At this point, I will increase his Exelon patch from 4.6 to 9.5 mg daily and augment with Namenda 5 mg a day. I will renew the Ativan p.r.n. in case he requires intervention. We will continue to engage in individual and kaur milieu activity with the ultimate plan to discharge to the least restrictive environment when psychiatrically stable. TONYA GOMEZ MD CM:PNTRANS 8 TONYA GOMEZ MD 06/30/1749 interface
--- NOTE | ~2017-06-25 | PR ---
[place], [place] PROGRESS NOTE NAME: TAHIRA POSADAS UNIT #: [id number] ROOM: 312 DOCTOR: TONYA GOMEZ MD BIRTHDATE: [birth year] DOS: 07/03/2017 CHIEF COMPLAINT: "Boy that cream really burned." SUMMARY OF THE VISIT: The patient was interviewed as he sat in the dining area, eating his breakfast. His initial complaint was that the Zostrix high potency cream bothered his skin and caused him to burn. When I did talk to him about his need to be responsible for his care and be more responsible about utilizing the ____ when he had to use the restroom, etc., he nodded in approval and states that he was already doing this. Nurses report the contrary. He does tend to be somewhat passive, aggressive at minimal and will urinate in the bed, soaking it and then utilize his ____ after the fact. He continues to be rather labile and at times inappropriate. MENTAL STATUS: He is alert and oriented with time gaps. Mood does still seem to be somewhat labile and he does require a great deal of support and redirection. There are no overt auditory or visual hallucinations. No delusions, no paranoia. Short term memory has mild gaps, otherwise he is intact. PLAN: I will continue to increase the Namenda, bringing it to 15 mg a day. I will discontinue the Zostrix high potency cream due to the fact that it seems to be irritating his skin and I will renew his Ativan p.r.n. in case he requires intervention. We will sit down with the treatment team with him there and confront him on his behaviors as well as helping him understand what is expected of him, both here and when he returns back to the long-term care facility. TONYA GOMEZ MD CM:PNTRANS 0 4 TONYA GOMEZ MD 07/03/17834 interface
--- NOTE | ~2017-06-25 | PR ---
[place], [place] PROGRESS NOTE [id number] #: [id number] ROOM: 312 DOCTOR: Shaggy GUILLEN,DONNELL BIRTHDATE: [birth year] DOS: SUBJECTIVE: The patient seen and spoke with the staff. Per staff, the patient is doing well. No behavioral problems or issues. Medication compliant. The patient was in the wheelchair. He reports doing well. He denied any depressed mood or hopelessness. Denied any other neurovegetative signs and symptoms of depression. He feels that the medication is helping him. MENTAL STATUS EXAMINATION: Pleasant, cooperative. Described his mood as "okay." Affect, mood congruent. Thought process are goal directed. No flight of ideas or loosening of association. He denied auditory or visual hallucination. No delusion or paranoia noted. He denied suicidal ideation, intent or plan. He also denied any homicidal ideation, intent or plan. ASSESSMENT: Schizoaffective disorder. PLAN: 1. Continue current medication and care. 2. Continue redirection. 3. Medication management and discharge plan by the regular team. DONNELL GUILLEN MD CM:ORION 07 24 Shaggy GUILLEN 06/29/172324 interface
--- NOTE | ~2017-06-25 | PR ---
[place], [place] PROGRESS NOTE NAME: TAHIRA POSADAS UNIT #: [id number] ROOM: 312 DOCTOR: TONYA GOMEZ MD BIRTHDATE: [birth year] DOS: 07/01/2017 CHIEF COMPLAINT: "Good morning, I do not feel like getting up." SUMMARY OF THE VISIT: The patient was interviewed once again as he rested in bed. As opposed to yesterday, at least this time he engaged in brief conversation. He was somewhat dismissive though and stated he did not feel like getting out of bed. Nurses report that yesterday he tried to stay in bed for most of the time and refused any type of interaction. How much of this is deliberate versus worsening depression because his Cymbalta was discontinued upon admission is unclear. MENTAL STATUS: He is alert and oriented with time gaps. Mood does seem to be somewhat depressed. He is flat, blunted and constricted. He was rather dismissive as I had mentioned previously and did not seem to want to engage much in conversation. He does exhibit gaps in memory. There was no agitation or aggression noted, however. PLAN: I will go ahead and maximize Exelon patch to 13.3 mg daily, hoping to impact positively on ADL maintenance, behavior and cognition. I will go ahead and add Trintellix 10 mg daily as an antidepressant that tends to be more activating to see if this has a positive effect on his overall behavior. We will attempt to encourage him as much as possible to leave his room and begin to engage in activities to see if this also will impact positively on his overall demeanor. Once medically and psychiatrically stable, we will discharge back to the least restrictive environment. TONYA GOMEZ MD CM:PNTRANS 1003 [id number] TONYA GOMEZ MD 07/01/17 1055 interface
[~2017-06-25 18:36] MED LIST: ALDACTONE25 M1 PO; ASPIRIN325 M2 PO; BUMETANIDE2 MG PO; Bactroban Oint22 GM T; COREG25 MG PO; CYMBALTA60 MG PO; DULOXETINE HCL60 MG PO; DUONEB 3 MG/3 ML3 M1 INH; ELIQUIS5 M1 PO; GLUCOPHAGE500 M1 PO; LANOXIN62.5 MCG PO; LIPITOR40 MG PO; LISINOPRIL5 MG PO; LORAZEPAM0.5 MG PO; MICONAZOLE NIT130 GM T; OXYGEN NAS; PALIPERIDONE ER3 MG PO; PROAIR RESPICL90 MCG INH; PROTONIX40 MG PO; TRAMADOL HCL50 MG PO; VITAMIN D-32000 UNIT PO
[2017-06-25] MEDS ORDERED: NYSTATIN CREAM15 GM T (22:05)
[2017-06-25] MEDS ORDERED: BUDESONIDE0.5 MG/2 M INH (22:09)
[2017-06-25] MEDS ORDERED: BIPAP PO (22:12)
[2017-06-25] MEDS ORDERED: HUMALOG JU100 UNIT/1 SQ (22:21)
[2017-06-25] MEDS ORDERED: BROVANA15 MCG/2 M INH (22:28)
[2017-06-25] MEDS ORDERED: BUMETANIDE0.5 MG PO (22:30)
[2017-06-25] MEDS ORDERED: CARVEDILOL6.25 MG PO (22:32)
[2017-06-25] MEDS ORDERED: IRON325 M1 PO (22:34)
[2017-06-25 23:45] VITALS: BP 88/62
[2017-06-25 23:58] VITALS: BP 82/62
[2017-06-26 01:39] VITALS: BP 101/66
[2017-06-26 07:31] LABS: BASO % 0.2 % (0.0-1.0); EOS # 0.2 10*3/uL (0.0-0.4); EOS % 2.6 % (1.0-4.0); HEMATOCRIT 37.2 % (42.0-52.0); HEMOGLOBIN 11.6 g/dl (14.0-18.0); LYMPH # 1.5 10*3/uL (1.3-4.4); LYMPH % 17.1 % (27.0-41.0); MEAN CELL VOLUME 88.6 fl (80.0-94.0); MEAN CORPUSCULAR HGB 27.6 pg (27.0-31.0); MEAN CORPUSCULAR HGB CONC 31.2 g/dl (33.0-37.0); MEAN PLATELET VOLUME 10.8 fl (9.6-12.3); MONO # 0.8 10*3/uL (0.1-1.0); MONO % 8.8 % (3.0-9.0); NEUT # 6.4 10*3/uL (2.3-7.9); PLATELET COUNT AUTOMATED 213 10*3/uL (130-400); RED CELL DISTRI WIDTH 15.2 % (0-14.5)
[2017-06-26 07:45] LABS: BILIRUBIN 2+ (NEGATIVE); BLOOD 3+ (NEGATIVE); CLARITY CLOUDY (CLEAR); COLOR YELLOW (YELLOW); GLUCOSE TRACE (NEGATIVE); KETONE 1+ (NEGATIVE); LEUKO ESTERASE TRACE (NEGATIVE); NITRITE NEGATIVE (NEGATIVE)
[2017-06-26 07:56] LABS: ALBUMIN 2.8 gm/dl (3.1-4.5); ALKALINE PHOSPHATASE 339 U/L (45-117); BUN 13 mg/dl (7-24); CHLORIDE 93 mmol/L (98-107); CREATININE 1.34 mg/dL (0.70-1.30); POTASSIUM 3.1 mmol/L (3.5-5.1); SGOT/AST 34 IU/L (3-35); SGPT/ALT 39 U/L (12-78); SODIUM 136 mmol/L (136-145); TOTAL PROTEIN 7.4 gm/dL (6.4-8.2)
[2017-06-26 08:03] LABS: VITAMIN D, 25-HYDROXY 36.7 ng/mL (30-100)
[2017-06-26 08:06] LABS: DIGOXIN 0.62 ng/ml (0.8-2.0)
[2017-06-26 08:14] VITALS: BP 143/65
[2017-06-26 10:06] LABS: BACTERIA 1+; MUCOUS 2+; RBC TNTC rbc/hpf (0-2)
[2017-06-26 20:06] VITALS: BP 122/72
[2017-06-27 07:06] LABS: CHOLESTEROL 141 mg/dL (<200); HDL CHOLESTEROL 41 mg/dl (40-60); LDL CHOLESTEROL 65 mg/dL (9-159); TRIGLYCERIDES 175 mg/dl (<150); VLDL CHOLESTEROL 35 mg/dL (6-40)
[2017-06-27 07:54] VITALS: BP 127/62
[2017-06-27 20:00] VITALS: BP 135/85
[2017-06-28 07:53] VITALS: BP 135/82
[2017-06-28 20:00] VITALS: BP 132/84
[2017-06-29 07:42] VITALS: BP 130/82
[2017-06-29 20:33] VITALS: BP 118/76
[2017-06-30 08:21] VITALS: BP 131/75
[2017-06-30 20:00] VITALS: BP 122/68
[2017-07-01 08:12] VITALS: BP 132/64
[2017-07-01 20:24] VITALS: BP 119/88
[2017-07-02 08:00] VITALS: BP 122/68
[2017-07-02 20:00] VITALS: BP 124/66
[2017-07-03 08:05] VITALS: BP 125/78
[2017-07-03 20:00] VITALS: BP 120/76
[2017-07-04 07:56] VITALS: BP 124/78
[2017-07-04] MEDS ORDERED: PALIPERIDONE ER6 MG PO (08:20)
[2017-07-04] MEDS ORDERED: EXELON13.3 MG/21 T (08:20)
[2017-07-04] MEDS ORDERED: NAMENDA-5 PO (08:20)
[2017-07-04] MEDS ORDERED: MEMANTINE HCL10 MG PO (08:20)
[2017-07-04] MEDS ORDERED: Vitamin D PO (08:20)
[2017-07-04] MEDS ORDERED: BRIN20TA PO (08:20)
== END 2017-07-04 14:45 | DRG 885 ==
LOC: 3N 18:36
PROVIDERS: Psychiatry & Neurology Psychiatry
DX: F25.9 Schizoaffective disorder, unspecified (principal); I48.91 Unspecified atrial fibrillation; E11.9 Type 2 diabetes mellitus without complications; E66.01 Morbid (severe) obesity due to excess calories; F23 Brief psychotic disorder; Z68.43 Body mass index [BMI] 50.0-59.9, adult; I25.10 Atherosclerotic heart disease of native coronary artery without angina pectoris; I87.2 Venous insufficiency (chronic) (peripheral); J44.9 Chronic obstructive pulmonary disease, unspecified; R45.1 Restlessness and agitation; E55.9 Vitamin D deficiency, unspecified; I10 Essential (primary) hypertension; K21.9 Gastro-esophageal reflux disease without esophagitis; F41.8 Other specified anxiety disorders; E78.2 Mixed hyperlipidemia; Z95.1 Presence of aortocoronary bypass graft; Z84.89 Family history of other specified conditions; Z79.899 Other long term (current) drug therapy; Z87.440 Personal history of urinary (tract) infections; Z79.82 Long term (current) use of aspirin